=== PATIENT | male | born 1960 | race Caucasian/White ===

== ENCOUNTER 2023-10-24 08:42 | Emergency (ER) | payer SELFPAY ==
[~2023-10-24] VITALS: Ht 185.4 cm; Wt 136.4 kg
[2023-10-24 09:13] LABS: BASO % 0.5 % (0.0-2.0); EOS # 0.9 K/mm3 (0.0-0.7); EOS % 11.7 % (0.0-4.0); HEMATOCRIT 38.9 % (42.0-52.0); HEMOGLOBIN 13.6 g/dl (13.5-18.0); LYMPH # 1.5 K/mm3 (1.2-3.4); LYMPH % 20.4 % (20.0-51.0); MEAN CELL VOLUME 94 fl (80.0-100.0); MEAN CORPUSCULAR HEMOGLOBIN 33 pg (27-31); MEAN CORPUSCULAR HGB CONC 35 g/dl (33.0-37.0); MEAN PLATELET VOLUME 8.7 fl (7.4-10.4); MONO % 13.1 % (1.7-9.3); PLATELET COUNT 238 K/mm3 (130-400); RED BLOOD COUNT 4.15 M/mm3 (4.20-5.60); REDCELL DISTRIBUTION WIDTH-CV 12.5 % (11.5-14.5)
[2023-10-24 09:32] LABS: ALBUMIN 3.5 g/dL (3.4-4.8); BILIRUBIN,TOTAL 0.7 mg/dL (0.2-1.2); CALCIUM 9.8 mg/dL (8.4-10.2); CREATININE, serum 0.71 mg/dL (0.72-1.25); POTASSIUM 4.1 mEq/L (3.5-4.5); TOTAL PROTEIN 7.7 g/dl (6.2-8.1)
[2023-10-24 09:40] LABS: TROPONIN-I 0.013 ng/mL (0.00-0.033)
[2023-10-24 11:02] VITALS: BP 167/86; PULSE 58
== END 2023-10-24 11:11 | disposition home or self-care (01) ==
LOC: COL.ER 08:42
PROVIDERS: Personal Emergency Response Attendant
DX: Z04.1 Encounter for examination and observation following transport accident (principal); V89.2XXA Person injured in unspecified motor-vehicle accident, traffic, initial encounter; Y92.481 Parking lot as the place of occurrence of the external cause